=== PATIENT | female | born 1980 | race Caucasian/White ===

== ENCOUNTER 2017-01-17 12:29 | Emergency (ER) | payer MEDICARE, OTHER ==
[2017-01-17] MEDS ORDERED: SODIUM CHLORIDE 0.9% 1,000 ML IV STA (13:19)
--- NOTE | 2017-01-17 13:28 | ED ---
General Adult HPI - General Chief complaint: Vaginal Bleeding Stated complaint: vaginal bleeding/8 weeks preg Time Seen by Provider: 01/17/17 13:03 Source: patient, RN notes reviewed Mode of arrival: ambulatory Limitations: physical limitation - History of Present Illness Initial comments: Patient 36-year-old female who presents emergency room today with a chief complaint of vaginal bleeding times one day. Does admit that it started yesterday light in color. States still having some light spotting. Does admit that she had a positive test at home 2 weeks ago. States she is approximately 6 weeks last menstrual cycle. She denies any other complaints or symptoms at this time. Patient denies any recent fever, chills, shortness of breath, chest pain, back pain, abdominal pain, nausea or vomiting, numbness or tingling, dysuria or hematuria, constipation or diarrhea, headaches or visual changes, or any other complaints. - Related Data Home Medications Medication Instructions Recorded Confirmed Pnv with Ca,No.71/Iron/FA 1 tab PO DAILY 12/04/13 01/17/17 [Prenaplus Tablet] Allergies Allergy/AdvReac Type Severity Reaction Status Date / Time diphenhydramine HCl Allergy Rash/Hives Verified 01/17/17 13:21 [From Benadryl] Penicillins Allergy Anaphylaxis Verified 01/17/17 13:21 Review of Systems ROS Statement: Those systems with pertinent positive or pertinent negative responses have been documented in the HPI. ROS Other: All systems not noted in ROS Statement are negative. Past Medical History Additional Past Medical History / Comment(s): HEARING LOSS. OB Hx: Patient has had good care with me since 6 weeks gestation. Her blood type is A-, antibody is negative, rubella immune, RPR nonreactive, HIV nonreactive, hepatitis B negative, her EDC 12/13/2013 by LMP and ultrasound. She declined quad screen had a normal 1 hour glucose tolerance test and got RhoGAM at 28 weeks on 09/23/2013. Group beta strep was negative. History of Any Multi-Drug Resistant Organisms: None Reported Past Surgical History: No Surgical Hx Reported Past Anesthesia/Blood Transfusion Reactions: No Reported Reaction Past Psychological History: No Psychological Hx Reported Smoking Status: Never smoker Past Alcohol Use History: None Reported Past Drug Use History: None Reported General Exam - General Exam Comments Initial Comments: General: The patient is awake and alert, in no distress, and does not appear acutely ill. Eye: Pupils are equal, round and reactive to light, extra-ocular movements are intact. No nystagmus. There is normal conjunctiva bilaterally. No signs of icterus. Ears, nose, mouth and throat: There are moist mucous membranes and no oral lesions. Neck: The neck is supple, there is no tenderness or JVD. Cardiovascular: There is a regular rate and rhythm. No murmur, rub or gallop is appreciated. Respiratory: Lungs are clear to auscultation, respirations are non-labored, breath sounds are equal. No wheezes, stridor, rales, or rhonchi. Gastrointestinal: Soft, non-distended, non-tender abdomen without masses or organomegaly noted. There is no rebound or guarding present. No CVA tenderness. Bowel sounds are unremarkable. Musculoskeletal: Normal ROM, no tenderness. Strength 5/5. Sensation intact. Pulses equal bilaterally 2+. Neurological: A&O x 3. CN II-XII intact, There are no obvious motor or sensory deficits. Coordination appears grossly intact. Speech is normal. Skin: Skin is warm and dry and no rashes or lesions are noted. Psychiatric: Cooperative, appropriate mood & affect, normal judgment. Limitations: physical limitation Course Vital Signs 01/17/17 01/17/17 12:48 15:10 Temperature 98.2 F 97.9 F Pulse Rate 84 84 Respiratory 18 15 Rate Blood Pressure 139/83 148/86 O2 Sat by Pulse 99 99 Oximetry Medical Decision Making - Medical Decision Making Reexamined at this time shows no signs of distress. Patient resting comfortably in the stretcher. Abdomen soft nontender. Patient's ultrasound does show a gestational sac measuring approximately 6 weeks. There is no heart tones. Could represent demise. Patient's beta hCG is 649. This time patient is comfortable. RH negative. Rhogam given here in the ER. Patient will be discharged home and advised to follow-up with [facility] over the next 2 days. Advised return here the emergency room for any symptoms increase or worsen or for any other concerns. - Lab Data Result diagrams: 01/17/17 13:00 01/17/17 13:00 Lab Results 01/17/17 01/17/17 01/17/17 Range/Units 12:56 13:00 13:00 WBC 5.2 (3.8-10.6) k/uL RBC 4.61 (3.80-5.40) m/uL Hgb 14.1 (11.4-16.0) gm/dL Hct 42.4 (34.0-46.0) % MCV 91.9 (80.0-100.0) fL MCH 30.5 (25.0-35.0) pg MCHC 33.2 (31.0-37.0) g/dL RDW 13.4 (11.5-15.5) % Plt Count 287 (150-450) k/uL Neutrophils % 62 % Lymphocytes % 26 % Monocytes % 7 % Eosinophils % 2 % Basophils % 1 % Neutrophils # 3.3 (1.3-7.7) k/uL Lymphocytes # 1.3 (1.0-4.8) k/uL Monocytes # 0.3 (0-1.0) k/uL Eosinophils # 0.1 (0-0.7) k/uL Basophils # 0.0 (0-0.2) k/uL Sodium 140 (137-145) mmol/L Potassium 3.6 (3.5-5.1) mmol/L Chloride 103 (98-107) mmol/L Carbon Dioxide 24 (22-30) mmol/L Anion Gap 13 mmol/L BUN 10 (7-17) mg/dL Creatinine 0.60 (0.52-1.04) mg/dL Est GFR (MDRD) Af Amer >60 (>60 ml/min/1.73 sqM) Est GFR (MDRD) Non-Af >60 (>60 ml/min/1.73 sqM) Glucose 66 L (74-99) mg/dL Calcium 9.5 (8.4-10.2) mg/dL Total Bilirubin 0.4 (0.2-1.3) mg/dL AST 25 (14-36) U/L ALT 25 (9-52) U/L Alkaline Phosphatase 65 (38-126) U/L Total Protein 7.8 (6.3-8.2) g/dL Albumin 4.7 (3.5-5.0) g/dL HCG, Quant 649.9 mIU/mL Urine Color Yellow Urine Appearance Cloudy H (Clear) Urine pH 6.5 (5.0-8.0) Ur Specific Termo 1.014 (1.001-1.035) Urine Protein Negative (Negative) Urine Glucose (UA) Negative (Negative) Urine Ketones Negative (Negative) Urine Blood Moderate H (Negative) Urine Nitrite Negative (Negative) Urine Bilirubin Negative (Negative) Urine Urobilinogen <2.0 (<2.0) mg/dL Ur Leukocyte Esterase Negative (Negative) Urine RBC 1 (0-5) /hpf Urine WBC 2 (0-5) /hpf Ur Squamous Epith Cells 4 (0-4) /hpf Amorphous Sediment Occasional H (None) /hpf Urine Mucus Rare H (None) /hpf Blood Type Blood Type Recheck 01/17/17 Range/Units 13:00 WBC (3.8-10.6) k/uL RBC (3.80-5.40) m/uL Hgb (11.4-16.0) gm/dL Hct (34.0-46.0) % MCV (80.0-100.0) fL MCH (25.0-35.0) pg MCHC (31.0-37.0) g/dL RDW (11.5-15.5) % Plt Count (150-450) k/uL Neutrophils % % Lymphocytes % % Monocytes % % Eosinophils % % Basophils % % Neutrophils # (1.3-7.7) k/uL Lymphocytes # (1.0-4.8) k/uL Monocytes # (0-1.0) k/uL Eosinophils # (0-0.7) k/uL Basophils # (0-0.2) k/uL Sodium (137-145) mmol/L Potassium (3.5-5.1) mmol/L Chloride (98-107) mmol/L Carbon Dioxide (22-30) mmol/L Anion Gap mmol/L BUN (7-17) mg/dL Creatinine (0.52-1.04) mg/dL Est GFR (MDRD) Af Amer (>60 ml/min/1.73 sqM) Est GFR (MDRD) Non-Af (>60 ml/min/1.73 sqM) Glucose (74-99) mg/dL Calcium (8.4-10.2) mg/dL Total Bilirubin (0.2-1.3) mg/dL AST (14-36) U/L ALT (9-52) U/L Alkaline Phosphatase (38-126) U/L Total Protein (6.3-8.2) g/dL Albumin (3.5-5.0) g/dL HCG, Quant mIU/mL Urine Color Urine Appearance (Clear) Urine pH (5.0-8.0) Ur Specific Termo (1.001-1.035) Urine Protein (Negative) Urine Glucose (UA) (Negative) Urine Ketones (Negative) Urine Blood (Negative) Urine Nitrite (Negative) Urine Bilirubin (Negative) Urine Urobilinogen (<2.0) mg/dL Ur Leukocyte Esterase (Negative) Urine RBC (0-5) /hpf Urine WBC (0-5) /hpf Ur Squamous Epith Cells (0-4) /hpf Amorphous Sediment (None) /hpf Urine Mucus (None) /hpf Blood Type A Negative Blood Type Recheck No Disposition Clinical Impression: Threatened Disposition: HOME SELF-CARE Condition: Stable Instructions: Threatened Miscarriage (ED) Additional Instructions: Please follow-up have repeat beta hCG done 2 days. Please follow up with the OB /[facility] as well over the next 1-2 days. Please return to emergency room if any symptoms increase or worsen or for any other concerns. Referrals: Nonstaff,Physician [REFERRING] - 1-2 days Suzanne Amaya DO [Doctor of Osteopathic Medicine] - 1-2 days Time of Disposition: 15:47
[2017-01-17 13:39] LABS: Basophils % (A) 1 %; CHCM 33.9; Eosinophils # (A) 0.1 k/uL (0-0.7); Eosinophils % (A) 2 %; HCT 42.4 % (34.0-46.0); HDW 2.33; HGB 14.1 gm/dL (11.4-16.0); Luc # (Auto) 0.16; Luc % (Auto) 3; Lymphocytes # (A) 1.3 k/uL (1.0-4.8); Lymphocytes % (A) 26 %; MCH 30.5 pg (25.0-35.0); MCHC 33.2 g/dL (31.0-37.0); MCV 91.9 fL (80.0-100.0); Mean Platelet Volume 7.1; Monocytes # (A) 0.3 k/uL (0-1.0); Monocytes % (A) 7 %; Neutrophils # (A) 3.3 k/uL (1.3-7.7); Neutrophils % (A) 62 %; RBC 4.61 m/uL (3.80-5.40); RDW 13.4 % (11.5-15.5); WBC 5.2 k/uL (3.8-10.6); WBC (Perox) 4.98
[2017-01-17 13:50] LABS: AST 25 U/L (14-36); Alkaline Phosphatase 65 U/L (38-126); Anion Gap 13 mmol/L; Blood Urea Nitrogen 10 mg/dL (7-17); Calcium 9.5 mg/dL (8.4-10.2); Carbon Dioxide 24 mmol/L (22-30); Chloride 103 mmol/L (98-107); Glucose 66 mg/dL (74-99); Non-African American GFR(MDRD) >60 (>60 ml/min/1.73 sqM); Potassium 3.6 mmol/L (3.5-5.1); Sodium 140 mmol/L (137-145); Total Bilirubin 0.4 mg/dL (0.2-1.3); Total Protein 7.8 g/dL (6.3-8.2)
[2017-01-17 13:57] LABS: ALT 25 U/L (9-52)
[2017-01-17 14:06] LABS: HCG,Quantitative Serum 649.9 mIU/mL
[2017-01-17 14:09] LABS: Amorphous Sediment,Urine Occasional /hpf; Appearance,Urine Cloudy (Clear); Bilirubin,Urine Negative (Negative); Glucose,Urine (UA) Negative (Negative); Ketones,Urine Negative (Negative); Leukocyte Esterase,Urine Negative (Negative); Mucus,Urine Rare /hpf; Nitrite,Urine Negative (Negative); PH, Urine 6.5 (5.0-8.0); Particle Count 6359; Protein,Urine Negative (Negative); RBC,Urine 1 /hpf (0-5); Specific Gravity,Urine 1.014 (1.001-1.035); Squamous Epithelial Cell,Urine 4 /hpf (0-4); UA Billing (MACRO vs. MICRO) MICRO; Urobilinogen,Urine <2.0 mg/dL (<2.0); WBC,Urine 2 /hpf (0-5)
--- NOTE | 2017-01-17 14:37 | US ---
EXAMINATION TYPE: US OB <=14 wks transvag DATE OF EXAM: 01/17/2017 COMPARISON: NONE CLINICAL HISTORY: Pain. Bleeding x 2 days, 2, para 1 EXAM PERFORMED: Transvaginal (TV) and Transabdominal (TA) EXAM MEASUREMENTS: GESTATIONAL AGE / DATING Physician Established: Not established yet Dates by LMP: Patient unsure: 2 cycles in October Dates by First Scan: This is 1st scan Dates by Current Scan for: (6 weeks/0 days) EDC: 09/12/2017 MATERNAL ANATOMY Uterus: 8.8 x 4.7 x 5.7cm, anteverted Right Ovary: 2.9 x 1.9 x 1.7cm Left Ovary: 2.3 x 1.5 x 1.2cm Post CDS / Adnexa: small amount of free fluid in posterior cul de sac Presence of free fluid: yes Presence of corpus luteal cyst: not seen at this time Presence of subchorionic bleed: no GESTATION / SURVEY CRL: 0.3cm (6 weeks/0 days) Yolk Sac (normal less than 6mm): 2.3mm IUP: Demise Date of LMP: Patient unsure: 2 cycles in October Beta HcG (if available): 649.9 No heart tones seen at this time, pole measuring 6 weeks 0 days IMPRESSION: GESTATIONAL SAC WITH YOLK SAC AND POLE CORRESPONDING TO A GESTATIONAL AGE OF 6 WEEKS. NO HEART TONES ARE HEARD. THIS LIKELY REPRESENTS DEMISE. SHORT-TERM FOLLOW-UP +/- SERIAL BETA HCGS WOULD BE SUGGESTED.
[2017-01-17] MEDS ORDERED: Rhogam IMMUNE GLOBULIN 1,500 UNIT/1 ML IM ONE (15:43)
[2017-01-17 16:56] VITALS: BP 133/73; PULSE 85; RESP 16; TEMP 97.5
== END 2017-01-17 17:09 | disposition home or self-care (01) ==
LOC: EC 12:29
DX: O20.0 Threatened abortion (principal); Z3A.01 Less than 8 weeks gestation of pregnancy; Z88.0 Allergy status to penicillin; Z88.8 Allergy status to other drugs, medicaments and biological substances; Z79.899 Other long term (current) drug therapy
CPT/HCPCS: 99284; 96360; 96372; 36415; 86900; 86901; 80053; 85025; 86850; 81001; 84702; 87086; 76801; 76817; J2791

== ENCOUNTER → 2017-01-19 | Outpatient (CLI) | payer MEDICARE | END | disposition home or self-care (01) | LOC: LABWHC1 14:05 | PROVIDERS: ATTEND Physician Assistant | DX: O20.0 Threatened abortion (principal) | CPT/HCPCS: 36415; 84702 ==

== ENCOUNTER → 2017-01-23 | Outpatient (CLI) | payer MEDICARE | LOC: LABWHC1 13:56 | PROVIDERS: ATTEND Obstetrics & Gynecology | DX: O03.9 Complete or unspecified spontaneous abortion without complication (principal) | CPT/HCPCS: 36415; 84702 ==

== ENCOUNTER → 2017-01-31 | Outpatient (CLI) | payer MEDICARE | END | disposition home or self-care (01) | LOC: LABWHC1 15:06 | PROVIDERS: ATTEND Obstetrics & Gynecology | DX: O03.9 Complete or unspecified spontaneous abortion without complication (principal); Z3A.00 Weeks of gestation of pregnancy not specified | CPT/HCPCS: 36415; 84702 ==

== ENCOUNTER 2017-11-06 11:22 | Inpatient (IN) | payer MEDICARE ==
[2017-11-06] MEDS ORDERED: CARBOPROST TROMETHAMINE 250 MCG/ML 1 ML AMP IM PRN (11:48)
[2017-11-06] MEDS ORDERED: LIDOCAINE 1% (PF) 10 MG/ML (30 ML SDV) SQ PRN (11:48)
[2017-11-06] MEDS ORDERED: TERBUTALINE 1 MG/ML VIAL SQ PRN (11:48)
[2017-11-06] MEDS ORDERED: OXYTOCIN 10 UNIT/ML 1 ML VIAL IM PRN (11:48)
[2017-11-06] MEDS ORDERED: METHYLERGONOVINE 0.2 MG/ML 1 ML AMP IM PRN (11:48)
[2017-11-06] MEDS: LACTATED RINGERS 1,000 ML IV SCH ×2 (12:00→12:45)
[2017-11-06 12:07] LABS: Basophils % (A) 0 %; Eosinophils # (A) 0.1 k/uL (0-0.7); Eosinophils % (A) 0 %; HCT 41.4 % (34.0-46.0); Lymphocytes # (A) 1.1 k/uL (1.0-4.8); Lymphocytes % (A) 8 %; MCH 29.5 pg (25.0-35.0); MCHC 33.9 g/dL (31.0-37.0); MCV 87.1 fL (80.0-100.0); Mean Platelet Volume 6.9; Monocytes # (A) 0.4 k/uL (0-1.0); Monocytes % (A) 3 %; Neutrophils # (A) 12.9 k/uL (1.3-7.7); Neutrophils % (A) 88 %; Platelet Count 326 k/uL (150-450); RBC 4.76 m/uL (3.80-5.40); RDW 14.8 % (11.5-15.5); WBC 14.6 k/uL (3.8-10.6)
[2017-11-06] MEDS ORDERED: fentaNYL (PF) 50 MCG/ML 5 ML AMP ONE (12:17)
[2017-11-06] MEDS ORDERED: BUPIVACAINE (PF) 0.25% 30 ML VIAL ONE (12:17)
[2017-11-06] MEDS ORDERED: SODIUM CHLORIDE 0.9% 100 ML BAG ONE (12:17)
[2017-11-06] MEDS ORDERED: BUPIVACAINE (PF) 0.25% 25 ML, fentaNYL (PF) 200 MCG in SODIUM CHLORIDE 0.9% 71 ML EPIDURAL ONE (12:34)
[2017-11-06 12:41] VITALS: BMI 26.9
--- NOTE | 2017-11-06 12:53 | HP ---
HISTORY AND PHYSICAL This is a 37-year-old white female 3, para 1-0-1-1, LMP 02/14/17, EDC 11/21/2017 at 38 weeks gestation. The patient presents to Labor and Delivery with strong regular uterine contractions. Fetus has been active throughout the . She denies fluid leakage or vaginal bleeding. Obstetric history is significant for blood type A negative, RhoGAM received. Rubella status is immune. VDRL testing, urine culture, hepatitis B surface antigen, HIV testing, gonorrhea and chlamydia cultures, group B strep cultures all negative. One hour Glucola 126. PAST SURGICAL HISTORY: Past surgical history is significant for benign breast lump removed. PAST MEDICAL HISTORY: Past medical history is significant for hearing impairment, hearing aids placed and functioning well. FAMILY HISTORY: Significant for hypertension, heart disease, hypercholesterolemia, and hearing impairment. ALLERGIES: None known. CURRENT MEDICATIONS: vitamins daily. SOCIAL HISTORY: The patient has never been a smoker. She denies alcohol or drug use. She is engaged to be . PHYSICAL EXAMINATION: On exam, this is a pleasant white female, she is 5 feet 6-1/2 inches, 175 pounds. Vital signs are stable and she is afebrile. The general physical exam is within normal limits. Hearing aids are placed. Fundus is obviously gravid, fundal height 38 cm. is vertex to Spencer's maneuvers. Cervix is 5 cm dilated, 80% effaced, -2 station, vertex presentation. Artificial amniorrhexis is pending. heart rate is consistent with reactive NST with frequent accelerations, no decelerations. There is no maternal edema noted. IMPRESSION: A 38-week intrauterine , active spontaneous labor. PLAN: Close maternal and surveillance. Epidural may be placed per patient's wishes. Anticipate normal spontaneous vaginal delivery. MMODL / IJN: [id number] /
[2017-11-06] MEDS ORDERED: diphenhydrAMINE 50 MG CAP PO PRN (15:31)
[2017-11-06] MEDS ORDERED: HYDROCORTISONE 2.5% RECTAL CREAM 30 GM TUBE RECTAL PRN (15:31)
[2017-11-06] MEDS ORDERED: diphenhydrAMINE 50 MG/ML 1 ML VIAL IVP PRN (15:31)
[2017-11-06] MEDS ORDERED: IBUPROFEN 600 MG TAB PO PRN (15:31)
[2017-11-06] MEDS ORDERED: ACETAMINOPHEN ORAL SUSP 160 MG/5 ML CUP PO PRN (15:31)
[2017-11-06] MEDS ORDERED: ACETAMINOPHEN TAB 325 MG TAB PO PRN (15:31)
[2017-11-06] MEDS ORDERED: SIMETHICONE 80 MG CHEWABLE PO PRN (15:31)
[2017-11-06] MEDS ORDERED: BENZOCAINE/MENTHOL SPRAY 1 GM/SPRAY AEROSOL TOPICAL PRN (15:31)
[2017-11-06] MEDS ORDERED: ZOLPIDEM 5 MG TAB PO PRN (15:31)
[2017-11-06] MEDS ORDERED: LANOLIN CREAM 5 GM TUBE TOPICAL PRN (15:31)
[2017-11-06] MEDS ORDERED: diphenhydrAMINE 25 MG CAP PO PRN (15:31)
[2017-11-06] MEDS ORDERED: WITCH HAZEL 1 EACH MED..PAD TOPICAL PRN (15:31)
--- NOTE | 2017-11-06 15:31 | P.PROBDLV ---
Vaginal Delivery Note - . Vaginal Delivery Note: This is a 37-year-old white female 3 para 1011 EDC 11/21/2017 at 37-6/7 weeks' gestation. Patient presented earlier today with strong regular uterine contractions. She denied fluid leakage or vaginal bleeding. Fetus is been active throughout the . is essentially unremarkable, group B strep cultures negative, blood type A-, rubella status immune. Please see my dictated history and physical for details. heart tones remained reassuring throughout the first and second stages of labor. Artificial amniorrhexis occurred for clear fluid at 1305 hrs. Uterine contractions were strong and regular and Pitocin was not deemed necessary. Epidural was placed per the patient's request. She progressed well through the first stage of labor was judged to be completely dilated at which time the second stage of labor commenced. The perineal body was prepped and draped in usual sterile fashion. Patient crowned the head in the occiput anterior position without difficulty. The infant restituted accordingly. There was no nuchal cord noted. The left or anterior shoulder was gently delivered from underneath the pubic symphysis at which time the oropharynx, nasopharynx and external nares were all bulb suctioned on the perineal body. Patient was officially delivered of a liveborn female infant at 1517 hrs. The umbilical cord was doubly clamped and ligated, she was handed to waiting nurses for evaluation where scores of 9 and 9 at one and 5 minutes respectively were given. The placenta delivered spontaneously, it was inspected and noted to be intact with trivascular cord at 1520 hrs. Uterus is now massaged. Inspection of cervix, vagina, perineum, periurethral, and perirectal areas reveals no lacerations and no defects. Fundus is firm and in the midline, symmetric and 18 week size. weighed 2980 g or 6 lbs. 9 oz. Patient and her family are allowed to begin the bonding experience in the LDR.
[2017-11-06] MEDS ORDERED: OXYTOCIN 20 UNITS/1000 ML NS 1,000 ML IV SCH (16:30)
[2017-11-06] MEDS ORDERED: SENNOSIDES-DOCUSATE SODIUM 1 EACH TAB PO SCH (20:00)
[2017-11-06 20:41] VITALS: RESP 16
[2017-11-07 08:12] LABS: Basophils % (A) 0 %; Eosinophils # (A) 0.1 k/uL (0-0.7); Eosinophils % (A) 0 %; HCT 39.8 % (34.0-46.0); HGB 13.3 gm/dL (11.4-16.0); Lymphocytes # (A) 1.7 k/uL (1.0-4.8); Lymphocytes % (A) 11 %; MCH 29.4 pg (25.0-35.0); MCHC 33.5 g/dL (31.0-37.0); MCV 87.7 fL (80.0-100.0); Mean Platelet Volume 7.1; Monocytes # (A) 0.5 k/uL (0-1.0); Monocytes % (A) 3 %; Neutrophils # (A) 12.7 k/uL (1.3-7.7); Neutrophils % (A) 83 %; Platelet Count 309 k/uL (150-450); RBC 4.53 m/uL (3.80-5.40); RDW 14.8 % (11.5-15.5); WBC 15.3 k/uL (3.8-10.6)
--- NOTE | 2017-11-07 11:53 | P.DS ---
Providers Date of admission: 11/06/17 11:43 Expected date of discharge: 11/07/17 Attending physician: Sue Briggs Primary care physician: Stated None Hospital Course: This is a 37-year-old white female 3 para 1011 EDC 11/21/2017 at 37-6/7 weeks' gestation. Patient presented is strong spontaneous labor, denying vaginal bleeding or fluid leakage. is essentially unremarkable, group B strep cultures negative, blood type A-, rubella status immune. Please see my dictated history and physical for details. Patient progressed well and went on to deliver vaginally a liveborn female infant with scores of 9 and 9 at one and 5 minutes respectively. She weighed 6 lbs. 9 oz. or 2980 g. There was an estimated blood loss recorded of 250 mL, no perineal lacerations performed. Please see my dictated delivery note for details. This morning the patient is doing well. She is voiding, ambulating, and passing flatus without difficulty. Vital signs are stable and she is afebrile. Fundus is firm and in the midline, symmetric and 18 week size. Extremities are negative for edema. is doing well. Breast-feeding is going well. Patient is being discharged home in very good condition. She will follow-up with me in the office in 6 weeks. I have reminded her no intercourse, tampons or douching. I have given her prescription for a double electric breast pump to be used as needed. I reminded her to continue taking her vitamins daily. She will use [id number] ibuprofen products, 200 mg pills, 3 every 6 hours as needed for pain. She will call me with any fevers shakes or chills, foul smelling or copious lochia, with any large blood clots, with any pain not alleviated by ibuprofen, or indeed with any concerns. Patient Condition at Discharge: Good Plan - Discharge Summary New Discharge Prescriptions: No Action Pnv with Ca,No.71/Iron/FA [Prenaplus Tablet] 1 tab PO DAILY Discharge Medication List Pnv with Ca,No.71/Iron/FA [Prenaplus Tablet] 1 tab PO DAILY 12/04/13 [History] Follow up Appointment(s)/Referral(s): Sue Briggs MD [STAFF PHYSICIAN] - 6 Weeks Discharge Disposition: HOME SELF-CARE
[2017-11-07 16:52] VITALS: BP 128/88; PULSE 75; TEMP 98.2
== END 2017-11-07 17:30 | disposition home or self-care (01) | DRG 775 ==
LOC: FBPOP 11:22 → 4FBP 11:43
PROVIDERS: ADMIT Obstetrics & Gynecology; ATTEND Obstetrics & Gynecology
PROC: 10E0XZZ Delivery of Products of Conception, External Approach (ICD-10-PCS; principal; 2017-11-06)
PROC: 10907ZC Drainage of Amniotic Fluid, Therapeutic from Products of Conception, Via Natural or Artificial Opening (ICD-10-PCS; 2017-11-06)
PROC: 00HU33Z Insertion of Infusion Device into Spinal Canal, Percutaneous Approach (ICD-10-PCS; 2017-11-06)
PROC: 3E0R3NZ Introduction of Analgesics, Hypnotics, Sedatives into Spinal Canal, Percutaneous Approach (ICD-10-PCS; 2017-11-06)
DX: O80 Encounter for full-term uncomplicated delivery (principal); Z3A.38 38 weeks gestation of pregnancy; Z37.0 Single live birth; H91.90 Unspecified hearing loss, unspecified ear; Z97.4 Presence of external hearing-aid; Z88.0 Allergy status to penicillin; Z88.8 Allergy status to other drugs, medicaments and biological substances; Z98.890 Other specified postprocedural states; Z82.49 Family history of ischemic heart disease and other diseases of the circulatory system; Z82.2 Family history of deafness and hearing loss
CPT/HCPCS: 59025; 85025; 86850; 86900; 86901; 88307; 99213